=== PATIENT | female | born 1985 | race Caucasian/White ===

== ENCOUNTER 2016-07-13 14:53 | Emergency (ER) | payer OTHER ==
[2016-07-13 15:11] VITALS: BP 130/83; PULSE 91; RESP 18; TEMP 98.3
--- NOTE | 2016-07-13 16:08 | ED ---
ENT HPI - General Chief complaint: ENT Stated complaint: Sinus Infection/Abcess (oral) Time Seen by Provider: 07/13/16 16:07 Source: patient, RN notes reviewed Mode of arrival: ambulatory Limitations: no limitations - History of Present Illness Initial comments: Patient is a 31 year old female with chief complaint of sinus congestion for one week and 2 days of dental pain. Patient reports she has a history of dental abscess after sinus infections. She reports she has a broken upper left tooth that has swollen around the edge of the gums for 2 days. Patient denies fever or chills. Patient reports she does not have a dentist. She reports to taking decongestants. - Related Data Home Medications Medication Instructions Recorded Confirmed Norethindrone-E.estradiol-Iron 1 tab PO DAILY 07/13/16 07/13/16 [Junel Fe 24 Tablet] Previous Rx's Medication Instructions Recorded Amoxicillin/Potassium Clav 1 tab PO Q12HR #14 tab 07/13/16 [Augmentin 875-125 Tablet] methylPREDNISolone Dose Pack 4 mg PO DIRECTED #21 package 07/13/16 [Medrol Dose Pack] Allergies Allergy/AdvReac Type Severity Reaction Status Date / Time sulfamethoxazole Allergy Severe Anaphylaxis Verified 07/13/16 16:29 [From Bactrim] trimethoprim [From Bactrim] Allergy Severe Anaphylaxis Verified 07/13/16 16:29 venom-honey bee Allergy Severe Anaphylaxis Verified 07/13/16 16:29 [bee venom (honey bee)] Review of Systems ROS Statement: Those systems with pertinent positive or pertinent negative responses have been documented in the HPI. ROS Other: All systems not noted in ROS Statement are negative. Past Medical History Past Medical History: Asthma Additional Past Medical History / Comment(s): Irritable bowel syndrome History of Any Multi-Drug Resistant Organisms: MRSA Date of last positivie culture/infection: 2009 MDRO Source:: under left arm Past Surgical History: Adenoidectomy, Tonsillectomy Additional Past Surgical History / Comment(s): cysts removed from ovary, 3 teeth removed sugically, sinus surgery x2, laprascopic surgery Past Anesthesia/Blood Transfusion Reactions: No Reported Reaction Past Psychological History: Depression Smoking Status: Current every day smoker Past Alcohol Use History: None Reported Past Drug Use History: None Reported General Exam Limitations: no limitations General appearance: alert, in no apparent distress Head exam: Present: atraumatic, normocephalic, normal inspection Eye exam: Present: normal appearance, PERRL, EOMI. Absent: scleral icterus, conjunctival injection, periorbital swelling ENT exam: Present: normal exam, mucous membranes moist, TM's normal bilaterally , other (sinus congestion and tenderness. ). Absent: normal oropharynx (broken upper left tooth number 12. Patient evidence of swelling around the tooth.) Neck exam: Present: normal inspection. Absent: tenderness, meningismus, lymphadenopathy Respiratory exam: Present: normal lung sounds bilaterally. Absent: respiratory distress, wheezes, rales, rhonchi, stridor Cardiovascular Exam: Present: regular rate, normal rhythm, normal heart sounds. Absent: systolic murmur, diastolic murmur, rubs, gallop, clicks GI/Abdominal exam: Present: soft, normal bowel sounds. Absent: distended, tenderness, guarding, rebound, rigid Extremities exam: Present: normal inspection, full ROM, normal capillary refill. Absent: tenderness, pedal edema, joint swelling, calf tenderness Back exam: Present: full ROM Neurological exam: Present: alert, oriented X3, CN II-XII intact Psychiatric exam: Present: normal affect, normal mood Skin exam: Present: warm, dry, intact, normal color. Absent: rash Course Vital Signs 07/13/16 15:09 Temperature 98.3 F Pulse Rate 91 Respiratory 18 Rate Blood Pressure 130/83 O2 Sat by Pulse 98 Oximetry Medical Decision Making - Medical Decision Making Patient is 31 year old with 1 week of sinus congestion and 2 days of tooth pain and swelling. Patient will be placed on augmentin and instructed to follow up with PCP as directed. Patient advised to follow up with dentist. Return parameters discussed. Patient understands treatment plan and will comply. Disposition Clinical Impression: Sinusitis, Dental infection Disposition: HOME SELF-CARE Condition: Good Instructions: Sinusitis (ED), Dental Abscess (ED) Additional Instructions: Patient instructed to completely antibiotic prescription. Follow-up with primary care provider within the week if symptoms continue to persist. Return to the [facility] if any alarming signs or symptoms occur. Prescriptions: Amoxicillin/Potassium Clav [Augmentin 875-125 Tablet] 1 tab PO Q12HR #14 tab methylPREDNISolone Dose Pack [Medrol Dose Pack] 4 mg PO DIRECTED #21 package Referrals: Pradeep Tejada MD [Primary Care Provider] - 1-2 days Time of Disposition: 16:17
== END 2016-07-13 16:38 | disposition home or self-care (01) ==
LOC: EC 14:53
DX: K04.7 Periapical abscess without sinus (principal); J32.9 Chronic sinusitis, unspecified; F17.200 Nicotine dependence, unspecified, uncomplicated; Z86.14 Personal history of Methicillin resistant Staphylococcus aureus infection; Z88.2 Allergy status to sulfonamides; Z91.030 Bee allergy status
CPT/HCPCS: 99282

== ENCOUNTER 2017-08-03 19:18 | Emergency (ER) | payer OTHER ==
[2017-08-03 19:26] VITALS: BP 140/83; PULSE 96; RESP 18; TEMP 98.7
--- NOTE | 2017-08-03 19:47 | ED ---
General Adult HPI - General Chief complaint: ENT Stated complaint: sore throat/back pain Time Seen by Provider: 08/03/17 19:27 Source: patient, RN notes reviewed Mode of arrival: ambulatory Limitations: no limitations - History of Present Illness Initial comments: This is a 32-year-old female who presents to the emergency department with complaints of sore throat and back pain. Patient states that since Tuesday she has had a sore throat. She states that she has had fevers and chills. She states that her fever recently broke at approximately noon today. She states that she has white stuff on her tonsils. Patient states she has had a decreased appetite. Patient also complains of back pain from a fall yesterday. Patient states that she fell down approximately 4 steps yesterday, injuring the left side of her back. She states that she's been taking ibuprofen and Tylenol. She denies any saddle paresthesias or loss of bladder or bowel function. Denies any head injury or neck pain. Denies loss of consciousness, dizziness or headache. She denies abdominal pain but does report some nausea. Denies vomiting. - Related Data Home Medications Medication Instructions Recorded Confirmed Norethindrone-E.estradiol-Iron 1 tab PO DAILY 07/13/16 07/13/16 [Junel Fe 24 Tablet] Previous Rx's Medication Instructions Recorded Amoxicillin/Potassium Clav 1 tab PO Q12HR #14 tab 07/13/16 [Augmentin 875-125 Tablet] methylPREDNISolone Dose Pack 4 mg PO DIRECTED #21 package 07/13/16 [Medrol Dose Pack] Cephalexin [Keflex] 500 mg PO Q12HR #20 cap 08/03/17 Allergies Allergy/AdvReac Type Severity Reaction Status Date / Time sulfamethoxazole Allergy Severe Anaphylaxis Verified 08/03/17 19:26 [From Bactrim] trimethoprim [From Bactrim] Allergy Severe Anaphylaxis Verified 08/03/17 19:26 venom-honey bee Allergy Severe Anaphylaxis Verified 08/03/17 19:26 [bee venom (honey bee)] Review of Systems ROS Statement: Those systems with pertinent positive or pertinent negative responses have been documented in the HPI. ROS Other: All systems not noted in ROS Statement are negative. Past Medical History Past Medical History: Asthma Additional Past Medical History / Comment(s): Irritable bowel syndrome History of Any Multi-Drug Resistant Organisms: MRSA Date of last positivie culture/infection: 2009 MDRO Source:: under left arm Past Surgical History: Adenoidectomy, Tonsillectomy Additional Past Surgical History / Comment(s): cysts removed from ovary, 3 teeth removed sugically, sinus surgery x2, laprascopic surgery Past Anesthesia/Blood Transfusion Reactions: No Reported Reaction Past Psychological History: No Psychological Hx Reported Smoking Status: Current every day smoker Past Alcohol Use History: Rare Past Drug Use History: None Reported General Exam - General Exam Comments Initial Comments: General: Awake and alert, well-developed; in no apparent distress. HEENT: Head atraumatic, normocephalic. Pupils are equal, round and reactive to light. Extraocular movements intact. Oropharynx moist with erythema and bilateral tonsillar exudates. Neck: Supple. Normal ROM. Cardiovascular: Regular rate and rhythm. No murmurs, rubs or gallops. Chest symmetrical. Respiratory: Lungs clear to auscultation bilaterally. No wheezes, rales or rhonchi. Normal respiratory effort with no use of accessory muscles. Musculoskeletal: Ambulating normally. Normal range of motion of spine. Generalized tenderness on palpation of mid and low back. There is ecchymosis noted to left side lumbar region. Sensation is intact. Pedal pulses are 2+ equal and palpable bilaterally. Skin: [place], warm and dry without rashes or lesions. Neurological: Alert and oriented x3. CN II-XII grossly intact. Speech is fluent and answers are appropriate. No focal neuro deficits. Psychiatric: Normal mood and affect. No overt signs of depression or anxiety noted. Limitations: no limitations Course Vital Signs 08/03/17 19:22 Temperature 98.7 F Pulse Rate 96 Respiratory 18 Rate Blood Pressure 140/83 O2 Sat by Pulse 98 Oximetry Medical Decision Making - Medical Decision Making This is a 33-year-old female who presents to the emergency department with complaints of sore throat and back pain. Patient does have an erythematous oropharynx with bilateral tonsillar exudates. She will be treated empirically for strep throat. Patient also complains of mid to low back pain after sustaining a fall yesterday. There is bruising noted to the left lower back. X- rays of thoracic and lumbar spine revealed no acute abnormalities. Patient is in no acute distress and vital signs are stable. She will be discharged home. She will be given a prescription from amoxicillin. She is follow-up with her primary care provider in 1-2 days. Findings and plan were discussed with patient who is in agreement. She voices understanding. All questions answered. - Radiology Data Radiology results: report reviewed X-ray thoracic spine impression: No acute fracture or dislocation is seen in the thoracic spine. X-ray lumbar spine impression: No acute fracture or dislocation is seen in the lumbar spine. Disposition Clinical Impression: Contusion of lower back, Streptococcal sore throat Disposition: HOME SELF-CARE Condition: Good Instructions: Strep Throat (ED), Contusion in Adults (ED), Back Pain (ED) Additional Instructions: Please take medications as prescribed. Please follow up with primary care provider within 1-2 days. Return to emergency department if symptoms should worsen or any concerns arise. Prescriptions: Cephalexin [Keflex] 500 mg PO Q12HR #20 cap Referrals: Pradeep Tejada MD [Primary Care Provider] - 1-2 days Time of Disposition: 20:01
--- NOTE | 2017-08-03 19:53 | XR ---
EXAMINATION TYPE: XR thoracic spine 2V DATE OF EXAM: 08/03/2017 CLINICAL HISTORY: pain TECHNIQUE: Frontal, lateral, and swimmer's view of thoracic spine are obtained. COMPARISON: None. FINDINGS: Thoracic spine show satisfactory alignment without evidence of acute fracture or dislocatio n. Vertebral body heights are preserved. Disc spaces are well preserved. Visualized ribs are unrem arkable. IMPRESSION: No acute fracture or dislocation is seen in the thoracic spine. ICD 10 NO FRACTURE, INIT IAL EVALUATION
--- NOTE | 2017-08-03 19:53 | XR ---
EXAMINATION TYPE: XR lumbar spine 2 or 3V DATE OF EXAM: 08/03/2017 CLINICAL HISTORY: pain TECHNIQUE: Three views of the lumbar spine are submitted. COMPARISON: None. FINDINGS: There are 5 lumbar type vertebral bodies identified. The lumbar spine shows satisfactory alignment w ithout evidence of acute fracture or dislocation. Vertebral body heights are within normal limits. Disc spaces are within normal limits. The overlying soft tissue appears unremarkable. IMPRESSION: No acute fracture or dislocation is seen in the lumbar spine. ICD 10 NO FRACTURE, INITIAL EVALUATION
== END 2017-08-03 20:09 | disposition home or self-care (01) ==
LOC: EC 19:18
DX: S30.0XXA Contusion of lower back and pelvis, initial encounter (principal); J02.0 Streptococcal pharyngitis; F17.200 Nicotine dependence, unspecified, uncomplicated; Z86.14 Personal history of Methicillin resistant Staphylococcus aureus infection; Z79.3 Long term (current) use of hormonal contraceptives; Z88.2 Allergy status to sulfonamides; Z91.030 Bee allergy status; W10.9XXA Fall (on) (from) unspecified stairs and steps, initial encounter
CPT/HCPCS: 72070; 72100; 99283

== ENCOUNTER 2019-08-18 12:22 | Emergency (ER) | payer BC ==
[2019-08-18 12:29] VITALS: BP 108/73; PULSE 77; RESP 20; TEMP 98
--- NOTE | 2019-08-18 12:51 | ED ---
Lower Extremity Injury HPI - General Chief Complaint: Extremity Injury, Lower Stated Complaint: Foot Injury Time Seen by Provider: 08/18/19 12:32 Source: patient Mode of arrival: ambulatory Limitations: no limitations - History of Present Illness Initial Comments: Patient is a 34-year-old female presenting to emergency Department with complaints of pain in her right foot since yesterday. Patient states she was swinging her leg around when her fifth digit caught the side of her bookshelf. She feels like it went to the side. Patient states she had some mild swelling and bruising yesterday but woke up this morning with increase in swelling and pain. She denies any previous injuries or surgeries to this foot. Patient states she has pain with walking. She has no other complaints at this time. Upon arrival to the ER, vitals are stable. - Related Data Home Medications Medication Instructions Recorded Confirmed Norethindrone-E.estradiol-Iron 1 tab PO DAILY 07/13/16 07/13/16 [Junel Fe 24 Tablet] Previous Rx's Medication Instructions Recorded Amoxicillin/Potassium Clav 1 tab PO Q12HR #14 tab 07/13/16 [Augmentin 875-125 Tablet] methylPREDNISolone Dose Pack 4 mg PO DIRECTED #21 package 07/13/16 [Medrol Dose Pack] Cephalexin [Keflex] 500 mg PO Q12HR #20 cap 08/03/17 Allergies Allergy/AdvReac Type Severity Reaction Status Date / Time sulfamethoxazole Allergy Severe Anaphylaxis Verified 08/18/19 12:29 [From Bactrim] trimethoprim [From Bactrim] Allergy Severe Anaphylaxis Verified 08/18/19 12:29 venom-honey bee Allergy Severe Anaphylaxis Verified 08/18/19 12:29 [bee venom (honey bee)] Review of Systems ROS Statement: Those systems with pertinent positive or pertinent negative responses have been documented in the HPI. ROS Other: All systems not noted in ROS Statement are negative. Past Medical History Past Medical History: Asthma Additional Past Medical History / Comment(s): Irritable bowel syndrome History of Any Multi-Drug Resistant Organisms: MRSA Date of last positivie culture/infection: 2009 MDRO Source:: under left arm Past Surgical History: Adenoidectomy, Tonsillectomy Additional Past Surgical History / Comment(s): cysts removed from ovary, 3 teeth removed sugically, sinus surgery x2, laprascopic surgery Past Anesthesia/Blood Transfusion Reactions: No Reported Reaction Past Psychological History: No Psychological Hx Reported Smoking Status: Current every day smoker Past Alcohol Use History: Rare Past Drug Use History: None Reported General Exam - General Exam Comments Initial Comments: GENERAL: Well-appearing, well-nourished and in no acute distress. HEAD: Atraumatic, normocephalic. EYES: Pupils equal round and reactive to light, extraocular movements intact, sclera anicteric, conjunctiva are normal. ENT: Moist mucous membranes. NECK: Normal range of motion, supple without lymphadenopathy or JVD. LUNGS: Breath sounds clear to auscultation bilaterally and equal. No wheezes rales or rhonchi. HEART: Regular rate and rhythm without murmurs, rubs or gallops. ABDOMEN: Soft, nontender, normoactive bowel sounds. No guarding, no rebound. No masses appreciated. EXTREMITIES: Patient has pain with palpation of the right fourth and fifth digits. Pain extends up into the fourth and fifth metatarsals. Patient does have significant bruising to the area as well as mild to moderate swelling. She is neurovascular intact. No pain of the right ankle. Patient does have full range of motion of her toes however painful with extension. No clubbing or cyanosis. SKIN: Warm, Dry, normal turgor, no rashes or lesions noted. Limitations: no limitations Course Vital Signs 08/18/19 12:27 Temperature 98.0 F Pulse Rate 77 Respiratory 20 Rate Blood Pressure 108/73 O2 Sat by Pulse 98 Oximetry Medical Decision Making - Medical Decision Making Patient is a 34-year-old female presenting with right foot pain after accident like taking a bookcase. Patient has significant bruising and swelling along the fourth and fifth digits and metatarsals. X-rays reveal no acute fractures dislocations of the right foot. I discussed these findings with the patient. This is most likely a contusion to the bones. Patient will continue with ice as well as ibuprofen for discomfort. She will follow-up with PCP in one to 2 weeks if symptoms persist. She is in agreement with this plan of care. She is stable for discharge. Disposition Clinical Impression: Contusion of right foot including toes Disposition: HOME SELF-CARE Condition: Stable Instructions (If sedation given, give patient instructions): Foot Contusion (ED) Additional Instructions: Please return to the Emergency Department if symptoms worsen or any other concerns. May use ice as well as ibuprofen to the area. Follow-up with PCP or orthopedics in 1-2 weeks if symptoms persist. Is patient prescribed a controlled substance at d/c from ED?: No Referrals: Pradeep Tejada MD [Primary Care Provider] - 1-2 days Alex Stephens MD [STAFF PHYSICIAN] - 1-2 days
--- NOTE | 2019-08-18 13:01 | XR ---
EXAMINATION TYPE: XR foot complete RT DATE OF EXAM: 08/18/2019 CLINICAL HISTORY: Pain after injury last night. TECHNIQUE: Frontal, lateral, and oblique images of the right foot are obtained. COMPARISON: None FINDINGS: There is no acute fracture/dislocation evident in the right foot. The joint spaces in the right foot appear within normal limits. Small inferior calcaneal spur. The overlying soft tissue andrey ears unremarkable. IMPRESSION: There is no acute fracture or dislocation in the right foot.
== END 2019-08-18 13:26 | disposition home or self-care (01) ==
LOC: EC 12:22
DX: S90.121A Contusion of right lesser toe(s) without damage to nail, initial encounter (principal); S90.31XA Contusion of right foot, initial encounter; F17.200 Nicotine dependence, unspecified, uncomplicated; Z88.1 Allergy status to other antibiotic agents; Z88.2 Allergy status to sulfonamides; Z91.030 Bee allergy status; W22.8XXA Striking against or struck by other objects, initial encounter; Y92.009 Unspecified place in unspecified non-institutional (private) residence as the place of occurrence of the external cause
CPT/HCPCS: 99283

== ENCOUNTER → 2019-11-16 | Outpatient (CLI) | payer OTHER ==
--- NOTE | 2019-11-16 12:28 | US ---
EXAMINATION TYPE: US OB >= 14 wk fetus DATE OF EXAM: 11/16/2019 COMPARISON: None CLINICAL HISTORY: Z36 confirm datesConfirm dates, 5, para 1, miscarriage 3 TECHNIQUE: Transabdominal (TA) GESTATIONAL AGE / DATING Physician Established: (14 weeks/2 days) EDC: 05/14/2020 Dates by LMP: Unknown Dates by First Scan: This is 1st scan Dates by Current Scan: (15 weeks/2 days) EDC: 05/07/2020 SURVEY IUP: Single PLACENTA: Posterior 2.2cm hypoechoic area seen PREVIA: No Previa CYNTHIA: 10.7 cm Normal CERVICAL LENGTH (transabdominal: norm > 3.0cm): 4.0 cm BIOMETRY PRESENTATION: Breech LIE: Longitudinal BPD: 2.8 cm 15 weeks / 0 days HC: 10.4 cm 14 weeks / 6 days AC: 9.7 cm 15 weeks / 6 days FL: 1.6 cm 14 weeks / 4 days ESTIMATED WEIGHT IN GRAMS: 117 grams ESTIMATED WEIGHT IN LBS/OZ: 0 lbs. 4 oz. WEIGHT PERCENTAGE BASED ON ESTABLISHED DATES: 92% HC/AC: 1.07 Normal FL/AC: 16.05 HEART RATE: 154 bpm RHYTHM: Normal MATERNAL WALL MEASUREMENT: 3.8 cm from skin to anterior uterine wall (if exam limited due to body hab itus). Viable single IUP measuring 15 weeks 2 days with a heart rate of 154bpm and an estimated delivery juan e of 05/07/2020. No suspicious cervical thinning. Single live intrauterine gestation. Breech presentation currently. N o placenta previa. Amniotic fluid index calculated within normal limits. biometry measurements congruent and are thought within normal limits. There is 2.2 cm oval hypoechoic area near the periphe ry of away from the cord. Suspect small subchorionic preplacental hemorrhage. Consider short-term ult rasound follow-up study. IMPRESSION: As above.
== END | disposition home or self-care (01) ==
LOC: RADUSWWP 10:26
PROVIDERS: ATTEND Obstetrics & Gynecology
DX: O32.1XX0 Maternal care for breech presentation, not applicable or unspecified (principal); Z3A.15 15 weeks gestation of pregnancy; Z88.1 Allergy status to other antibiotic agents
CPT/HCPCS: 76805

== ENCOUNTER 2020-03-26 15:09 | Outpatient (CLI) | payer OTHER ==
--- NOTE | 2020-03-26 16:17 | US ---
EXAMINATION TYPE: US OB >= 14 wk fetus DATE OF EXAM: 03/26/2020 COMPARISON: US 11/16/2019 CLINICAL HISTORY: decels in office, complete OB US TECHNIQUE: Transabdominal (TA) GESTATIONAL AGE / DATING Physician Established: (34 weeks/0 days) EDC: 05/07/2020 Dates by First Scan: 34 weeks/0 days) EDC: 05/07/2020 Dates by Current Scan: (32 weeks/5 days) EDC: 05/16/2020 SURVEY IUP: Single PLACENTA: Posterior PREVIA: No Previa CYNTHIA: 16.2 cm Normal CERVICAL LENGTH (transabdominal: norm > 3.0cm): 3.5 cm BIOMETRY PRESENTATION: Vertex LIE: Longitudinal BPD: 8.2 cm 33 weeks / 1 days HC: 29.5 cm 32 weeks / 5 days AC: 27.7 cm 31 weeks / 6 days FL: 6.3 cm 32 weeks / 5 days ESTIMATED WEIGHT IN GRAMS: 1924 grams ESTIMATED WEIGHT IN LBS/OZ: 4 lbs. 4 oz. WEIGHT PERCENTAGE BASED ON ESTABLISHED DATES: 7% HC/AC: 1.07 Normal FL/AC: 23% Normal HEART RATE: 156 bpm RHYTHM: Normal IMPRESSION: Single live intrauterine gestation, with heart rate of 156 bpm and estimated delivery date of 07/17/2019.
== END 2020-03-26 16:22 | disposition home or self-care (01) ==
LOC: FBPOP 15:09
PROVIDERS: ATTEND Obstetrics & Gynecology
DX: O42.913 Preterm premature rupture of membranes, unspecified as to length of time between rupture and onset of labor, third trimester (principal); Z3A.34 34 weeks gestation of pregnancy
CPT/HCPCS: 59025; 76805; 84112

== ENCOUNTER 2020-05-17 04:10 | Inpatient (IN) | payer OTHER ==
[2020-05-17] MEDS ORDERED: SIMETHICONE 80 MG CHEWABLE PO PRN (04:45)
[2020-05-17] MEDS ORDERED: diphenhydrAMINE 50 MG CAP PO PRN (04:45)
[2020-05-17] MEDS ORDERED: diphenhydrAMINE 25 MG CAP PO PRN (04:45)
[2020-05-17] MEDS ORDERED: BENZOCAINE/MENTHOL SPRAY 1 GM/SPRAY AEROSOL TOPICAL PRN (04:45)
[2020-05-17] MEDS ORDERED: HYDROCORTISONE 2.5% RECTAL CREAM 30 GM TUBE RECTAL PRN (04:45)
[2020-05-17] MEDS ORDERED: LANOLIN CREAM 5 GM TUBE TOPICAL PRN (04:45)
[2020-05-17] MEDS ORDERED: ZOLPIDEM 5 MG TAB PO PRN (04:45)
[2020-05-17] MEDS ORDERED: diphenhydrAMINE 50 MG/ML 1 ML VIAL IVP PRN ×2 (04:45)
[2020-05-17] MEDS ORDERED: OXYTOCIN 20 UNITS/1000 ML NS 1,000 ML IV SCH (04:45)
[2020-05-17] MEDS: IBUPROFEN 600 MG TAB PO PRN ×3 (05:16→19:23)
--- NOTE | 2020-05-17 05:36 | P.HPOB ---
History of Present Illness H&P Date: 05/17/20 Chief Complaint: Delivery at home This patient is a 35-year-old 5 para 2 female estimated date of confinement 05/15/2020 estimated gestational age 40-2/7 weeks who resented by EMS after delivering her baby at home in the toilet. Patient states that she awoke at approximately 2:30 or so with complaints of concerns of contractions however she didn't know if maybe it was just gas. Patient also began having some bleeding and pressure subsequently went to the bathroom where she subsequently delivered her baby in the toilet. Estimated delivery of the baby was 0335 hrs. Subsequently the placenta delivered spontaneously at approximately 0350 hrs. Patient was brought to labor and delivery by EMS with her baby. care is per Dr. Bray and she was in the office just recently and apparently was 5 cm dilated but declined induction. She also did have a positive group B strep culture. Patient is an elderly multipara and was offered evaluation by maternal medicine however declined. She did have a normal Materni T21. Review of Systems Genitourinary: Reports as per HPI Past Medical History Past Medical History: Asthma Additional Past Medical History / Comment(s): Irritable bowel syndrome History of Any Multi-Drug Resistant Organisms: MRSA Date of last positivie culture/infection: 2009 MDRO Source:: under left arm Past Surgical History: Adenoidectomy, Tonsillectomy Additional Past Surgical History / Comment(s): cysts removed from ovary, 3 teeth removed sugically, sinus surgery x2, laprascopic surgery Past Anesthesia/Blood Transfusion Reactions: No Reported Reaction Past Psychological History: Anxiety Smoking Status: Current every day smoker Past Alcohol Use History: None Reported Past Drug Use History: None Reported - Past Family History Mother Family Medical History: Thyroid Disorder Medications and Allergies Allergies Allergy/AdvReac Type Severity Reaction Status Date / Time sulfamethoxazole Allergy Severe Anaphylaxis Verified 05/17/20 04:43 [From Bactrim] trimethoprim [From Bactrim] Allergy Severe Anaphylaxis Verified 05/17/20 04:43 venom-honey bee Allergy Severe Anaphylaxis Verified 05/17/20 04:43 [bee venom (honey bee)] Exam Vital Signs Temp Pulse Resp BP 05/17/20 04:47 96.7 F L 76 16 119/70 Intake and Output 05/16/20 05/16/20 05/17/20 14:59 22:59 06:59 Other: Weight 97.069 kg - OBG Physical Exam Vulva: Patient has a superficial right upper labial laceration that does not require repair Vulva: both: normal Cervix: no lesion, no discharge Uterus: enlarged Results blood work shows she is A positive, rubella immune, RPR nonreactive, hepatitis B negative, HIV is nonreactive, Glucola was normal, Materni T21 was normal 46 XX, group B strep was positive, ultrasounds have been normal. Assessment and Plan Assessment: This is a 35-year-old 5 para 2 female status post spontaneous vaginal delivery at home. Patient also delivered the placenta at home as well. I did do an exam and patient is not bleeding and has a superficial laceration of the right labia. No suture is required. She understands and she had a positive group B strep culture most likely the baby will need to be watched for at least 48 hours and could require IV antibiotics. At this point we will just continue routine care. (1) Postmaturity , 40-42 weeks gestation Current Visit: Yes Status: Acute Code(s): O48.0 - POST-TERM SN OMED Code(s): 33422954931126 (2) Precipitous delivery, delivered (current hospitalization) Current Visit: Yes Status: Acute Code(s): O62.3 - PRECIPITATE LABOR SNOMED Code(s): 835532231
[2020-05-17] MEDS ORDERED: ONDANSETRON 4 MG/2 ML VIAL IVP STA (06:10)
[2020-05-17] MEDS: ACETAMINOPHEN TAB 325 MG TAB PO PRN ×3 (08:12→22:22)
[2020-05-17] MEDS: SENNOSIDES-DOCUSATE SODIUM 1 EACH TAB PO SCH ×2 (14:36→19:23)
[2020-05-18 00:48] VITALS: PULSE 64
[2020-05-18] MEDS: IBUPROFEN 600 MG TAB PO PRN ×2 (04:03→10:29)
--- NOTE | 2020-05-18 06:19 | P.PNOBGVD ---
Subjective - Subjective Patient reports: Reports appetite normal, Reports voiding normally, Reports pain well controlled, Reports ambulating normally : doing well Objective - Latest Vital Signs Latest vital signs: Vital Signs Temp Pulse Resp BP Pulse Ox 05/18/20 00:00 97.9 F 64 18 117/87 96 05/17/20 20:00 97.9 F 57 L 18 115/73 100 05/17/20 16:00 97.9 F 120 H 44 H 106/53 05/17/20 12:00 98.2 F 62 16 107/62 05/17/20 09:30 98.0 F 84 16 112/74 05/17/20 06:18 97.9 F 52 L 16 110/70 Intake and Output 05/17/20 05/17/20 05/18/20 14:59 22:59 06:59 Other: # Voids 1 1 1 - Exam Lungs: bilateral: normal Chest: Normal S1, Normal S2 Extremities: Present: normal Abdomen: Present: normal appearance, soft Uterus: Present: normal, firm Assessment and Plan Assessment: Post day #1. Patient is resting without complaints. Patient did want to go home yesterday however I encouraged her to stay until today because of her very recent delivery. Patient does desire to go home today allow her baby will not be able to go home until tomorrow. Vital signs are stable she is afebrile. Uterus is firm nontender she's having normal lochia. I do feel she is stable for discharge home follow up with Dr. Bray 6 weeks. (1) Postmaturity , 40-42 weeks gestation Current Visit: Yes Status: Acute Code(s): O48.0 - POST-TERM SNOMED Code(s): 16563735647274 (2) Precipitous delivery, delivered (current hospitalization) Current Visit: Yes Status: Acute Code(s): O62.3 - PRECIPITATE LABOR SNOMED Code(s): 526022081
--- NOTE | 2020-05-18 06:23 | P.DS ---
Providers Date of admission: 05/17/20 04:10 Expected date of discharge: 05/18/20 Attending physician: Gato Bray Primary care physician: Stated None - Discharge Diagnosis(es) (1) Postmaturity , 40-42 weeks gestation Current Visit: Yes Status: Acute (2) Precipitous delivery, delivered (current hospitalization) Current Visit: Yes Status: Acute Hospital Course: Please see dictated H&P for intimate details of this patient's admission. Brief summary this is a 35-year-old female admitted via EMS status post vaginal delivery of viable female infant in the placenta at home. patient had no problems had normal lochia. Patient wishes to go home actually on post day #0 by encouraged her to stay another day. Patient's felt be stable for discharge home follow with Dr. Bray in 6 weeks. Patient Condition at Discharge: Good Plan - Discharge Summary New Discharge Prescriptions: New Ibuprofen [Motrin] 600 mg PO Q6HR PRN #30 tab PRN Reason: Mild Pain Or Fever >= 100.5 Discharge Medication List Ibuprofen [Motrin] 600 mg PO Q6HR PRN #30 tab 05/18/20 [Rx] Follow up Appointment(s)/Referral(s): Gato Bray DO [Doctor of Osteopathic Medicine] - 6 Weeks Patient Instructions/Handouts: Vaginal Delivery (DC) Activity/Diet/Wound Care/Special Instructions: No intercourse or anything per vagina for 6 weeks. Please call if any fever, chills, excessive vaginal bleeding, and/or abdominal pain Discharge Disposition: HOME SELF-CARE
[2020-05-18 06:28] LABS: Basophils % (A) 0 %; Eosinophils # (A) 0.2 k/uL (0-0.7); Eosinophils % (A) 2 %; HCT 32.2 % (34.0-46.0); HGB 10.8 gm/dL (11.4-16.0); Lymphocytes # (A) 2.5 k/uL (1.0-4.8); Lymphocytes % (A) 29 %; MCH 30.9 pg (25.0-35.0); MCHC 33.7 g/dL (31.0-37.0); MCV 91.8 fL (80.0-100.0); Mean Platelet Volume 8.1; Monocytes # (A) 0.4 k/uL (0-1.0); Monocytes % (A) 5 %; Neutrophils # (A) 5.4 k/uL (1.3-7.7); Neutrophils % (A) 63 %; Platelet Count 209 k/uL (150-450); RBC 3.51 m/uL (3.80-5.40); RDW 13.3 % (11.5-15.5); WBC 8.6 k/uL (3.8-10.6)
[2020-05-18] MEDS: ACETAMINOPHEN TAB 325 MG TAB PO PRN (07:55)
[2020-05-18 08:09] VITALS: BP 111/70; RESP 16; TEMP 98.2
[2020-05-18] MEDS: SENNOSIDES-DOCUSATE SODIUM 1 EACH TAB PO SCH (09:12)
[2020-05-18 11:12] LABS: Urine Alcohol Negative (Negative); Urine Barbiturate Negative (Negative); Urine Cocaine Negative (Negative); Urine Methadone Negative (Negative); Urine Opiates Negative (Negative); Urine Phencyclidine Negative (Negative)
== END 2020-05-18 14:46 | disposition home or self-care (01) | DRG 776 ==
LOC: 4FBP 04:10
PROVIDERS: ADMIT Obstetrics & Gynecology; ATTEND Obstetrics & Gynecology
DX: O70.0 First degree perineal laceration during delivery (principal); J45.909 Unspecified asthma, uncomplicated; O99.824 Streptococcus B carrier state complicating childbirth; O99.52 Diseases of the respiratory system complicating childbirth; O99.334 Smoking (tobacco) complicating childbirth; F17.200 Nicotine dependence, unspecified, uncomplicated; K58.9 Irritable bowel syndrome, unspecified; Z86.14 Personal history of Methicillin resistant Staphylococcus aureus infection; Z90.89 Acquired absence of other organs; Z87.42 Personal history of other diseases of the female genital tract; Z86.59 Personal history of other mental and behavioral disorders; Z98.890 Other specified postprocedural states; Z98.818 Other dental procedure status; Z88.2 Allergy status to sulfonamides; Z91.030 Bee allergy status; Z83.49 Family history of other endocrine, nutritional and metabolic diseases
CPT/HCPCS: 80306; 85025; 86850; 86900; 86901

== ENCOUNTER 2020-08-15 06:13 | Day surgery (SDC) | payer OTHER ==
[2020-08-11 09:30] VITALS: BMI 29.3
--- NOTE | 2020-08-14 20:13 | P.HPOB ---
History of Present Illness H&P Date: 08/14/20 Chief Complaint: Family planning Constanza is a 35 year old female who is completed her family planning and desires permanent sterilization. She is 5. 2. Multiple discussions were held with various -control options discussed and she declines all. She understands that this is designed to be a permanent procedure and not designed to be reversed. She understands that there is a small failure rate as well. All questions were answered for her prior to proceeding to the operative room. Past Medical History Past Medical History: Asthma, GERD/Reflux, Musculoskeletal Disorder Additional Past Medical History / Comment(s): Irritable Bowel Syndrome. Varicose vein. Scoliosis. Hx broken tail bone. History of Any Multi-Drug Resistant Organisms: MRSA Date of last positivie culture/infection: 2009 MDRO Source:: under left arm Past Surgical History: Adenoidectomy, Tonsillectomy Additional Past Surgical History / Comment(s): Cysts removed from ovary, 3 teeth removed surgically, sinus surgery X2, laproscopic surgery. Past Anesthesia/Blood Transfusion Reactions: No Reported Reaction Past Psychological History: Anxiety Smoking Status: Current every day smoker Past Alcohol Use History: None Reported Additional Past Alcohol Use History / Comment(s): Has been smoking for 6 yrs, 1/2 PPD. Past Drug Use History: None Reported - Past Family History Mother Family Medical History: Thyroid Disorder Medications and Allergies Home Medications Medication Instructions Recorded Confirmed Type Ibuprofen [Motrin] 600 mg PO Q6HR PRN #30 tab 05/18/20 08/11/20 Rx Allergies Allergy/AdvReac Type Severity Reaction Status Date / Time sulfamethoxazole Allergy Severe Anaphylaxis Verified 08/11/20 09:09 [From Bactrim] trimethoprim [From Bactrim] Allergy Severe Anaphylaxis Verified 08/11/20 09:09 venom-honey bee Allergy Severe Anaphylaxis Verified 08/11/20 09:09 [bee venom (honey bee)] Exam Osteopathic Statement: *. No significant issues noted on an osteopathic structural exam other than those noted in the History and Physical/Consult. - OBG Physical Exam Breast: both: normal (no masses) Abdomen: bowel sounds normal, no diffuse tenderness, no bruit present, no guarding noted, no hepatomegaly, no splenomegaly, no mass Vulva: both: normal Vagina: normal moisture, no discharge Cervix: no lesion, no discharge Uterus: normal size, normal contour Adnexa: both: normal Anus/Rectum: normal perianal skin, no rectal mass, no hemorrhoids, heme negative
[~2020-08-15 06:13] MED LIST: DEXAMETHASONE SOD PHOSPHATE 4 MG/ML 1 ML VIAL IV ONE; LACTATED RINGERS 1,000 ML IV SCH; MIDAZOLAM 2 MG/2 ML VIAL IV PRN; ONDANSETRON 4 MG/2 ML VIAL IVP ONE; Pre Op ABX Message 1 EACH MISC MISCELLANE ONE; SCOPOLAMINE 1.5MG/72HR PATCH TRANSDERM ONE
[2020-08-15] MEDS ORDERED: LIDOCAINE 1% (10MG/ML) FOR IV START INTRADERMA ONE (07:06)
[2020-08-15] MEDS ORDERED: BUPIVACAINE (PF) 0.25% 30 ML VIAL SQ ONE ×2 (07:33→08:01)
[2020-08-15] MEDS ORDERED: PROPOFOL 10 MG/ML 20 ML VIAL IV ONE (07:34)
[2020-08-15] MEDS ORDERED: LIDOCAINE 1% INJ 10MG/ML (20 ML MDV) ONE (07:34)
[2020-08-15] MEDS ORDERED: ROCURONIUM 10 MG/ML (5 ML VIAL) IV ONE (07:34)
[2020-08-15] MEDS ORDERED: MIDAZOLAM 2 MG/2 ML VIAL ONE (07:34)
[2020-08-15] MEDS ORDERED: NEOSTIGMINE 1 MG/ML 10 ML VIAL ONE (07:34)
[2020-08-15] MEDS ORDERED: HYDROmorphone (PF) 1 MG/ML ONE (07:34)
[2020-08-15] MEDS ORDERED: SUCCINYLCHOLINE CHLORIDE 100 MG/5 ML SYR IV ONE (07:34)
[2020-08-15] MEDS ORDERED: fentaNYL (PF) 50 MCG/ML 2 ML AMP ONE (07:34)
[2020-08-15] MEDS ORDERED: KETOROLAC 15 MG/ML 1 ML VIAL ONE (07:34)
[2020-08-15] MEDS ORDERED: GLYCOPYRROLATE 0.2 MG/ML 2 ML VIAL ONE (07:34)
--- NOTE | 2020-08-15 08:16 | P.OP ---
Date of Procedure: 08/15/20 Preoperative Diagnosis: Family planning Postoperative Diagnosis: Same Procedure(s) Performed: Laparoscopic tubal occlusion with Filshie clips Anesthesia: ISHA Surgeon: Gato Bray Estimated Blood Loss (ml): 3 IV fluids (ml): 300 Urine output (ml): 30 Pathology: none sent Condition: stable Disposition: same day Operative Findings: Normal female pelvic anatomy Description of Procedure: Constanza was taken to the operating suite where general anesthetic was found be adequate. She was prepped and draped in the normal sterile fashion and placed in dorsal lithotomy position. Initially a speculum was inserted in the vagina and the anterior lip of the cervix was identified and grasped with single tooth tenaculum. Cervix was then sounded to 8 cm and a uterine manipulator was inserted without difficulty. Other incidents were then removed and red rubber catheter was used to drain the bladder urine. Gloves were changed this point attention was turned to the abdominal portion procedure per 2 mL of quarter percent Marcaine was injected periumbilically. Through this injected anesthetic a 5 mm skin incision was made and through this incision, under direct visualization with an optical trocar and sleeve, the camera was inserted. Once peritoneal placement was assured gas was allowed to fully insufflate the abdomen and patient was placed in steep Trendelenburg position. A second 8 mm skin inci ramón was then made 3 cm above the pubic symphysis in the midline and an 8 mm trocar and sleeve were inserted through this incision. Once this was completed again under direct visualization, observations pelvis were noted. First the right fallopian tube than the left fallopian tube had a Filshie clip applied 2 cm from uterine cornu. With no bleeding noted from the mesosalpinx incidents removed and gas was allowed to expel from the abdomen. 5 deep breaths were provided during this process. 4-0 Vicryl was then used to close incision subcuticularly and another 6-7 mL of quarter percent Marcaine was injected around these incisions. Incidents were then removed from the vagina. Sponge, lap, needle counts were all correct 2 patient tolerated surgery very well and was taken to the recovery room in stable and satisfactory condition. Plan - Discharge Summary Discharge Rx Participant: Yes New Discharge Prescriptions: New Ibuprofen [Motrin] 600 mg PO Q6HR PRN #30 tab PRN Reason: Pain HYDROcodone/APAP 5-325MG [[place] 5-325] 1 tab PO Q4HR PRN #30 tab PRN Reason: Pain No Action Ibuprofen [Motrin] 600 mg PO Q6HR PRN #30 tab PRN Reason: Mild Pain Or Fever >= 100.5 Discharge Medication List Ibuprofen [Motrin] 600 mg PO Q6HR PRN #30 tab 05/18/20 [Rx] HYDROcodone/APAP 5-325MG [[place] 5-325] 1 tab PO Q4HR PRN #30 tab 08/15/20 [Rx] Ibuprofen [Motrin] 600 mg PO Q6HR PRN #30 tab 08/15/20 [Rx] Follow up Appointment(s)/Referral(s): Gato Bray DO [Doctor of Osteopathic Medicine] - 2 Weeks Activity/Diet/Wound Care/Special Instructions: No heavy lifting, limit stairs and driving, and pelvic rest. If any high temperatures, heavy bleeding, or severe pain call my office Discharge Disposition: HOME SELF-CARE
[2020-08-15 08:23] VITALS: TEMP 97.3
[2020-08-15] MEDS ORDERED: ONDANSETRON 4 MG/2 ML VIAL IVP ONE (08:25)
[2020-08-15] MEDS: HYDROmorphone 0.5 MG/0.5 ML SYRINGE IVP PRN ×3 (08:30→09:48)
[2020-08-15 10:16] VITALS: RESP 18
[2020-08-15] MEDS ORDERED: HYDROcodone/APAP 5-325MG 1 EACH TAB ONE (10:27)
[2020-08-15] MEDS ORDERED: HYDROcodone/APAP 5-325MG 1 EACH TAB PO ONE (10:53)
[2020-08-15 11:09] VITALS: BP 115/77; PULSE 48
== END 2020-08-15 11:43 | disposition home or self-care (01) ==
LOC: OR 06:13
PROVIDERS: ATTEND Obstetrics & Gynecology
DX: Z30.2 Encounter for sterilization (principal); J45.909 Unspecified asthma, uncomplicated; K21.9 Gastro-esophageal reflux disease without esophagitis; K58.9 Irritable bowel syndrome, unspecified; I83.90 Asymptomatic varicose veins of unspecified lower extremity; F41.9 Anxiety disorder, unspecified; F17.210 Nicotine dependence, cigarettes, uncomplicated; Z86.14 Personal history of Methicillin resistant Staphylococcus aureus infection; Z83.49 Family history of other endocrine, nutritional and metabolic diseases; Z88.2 Allergy status to sulfonamides; Z91.030 Bee allergy status
CPT/HCPCS: 81025; 58671; J2250; J1100; J2710; J2405; J2001; J3010; J1170 ×2; J1885; J0330; J2704

== ENCOUNTER 2021-12-01 15:26 | Emergency (ER) | payer OTHER ==
[2021-12-01 15:54] VITALS: TEMP 98.3
[2021-12-01] MEDS ORDERED: MORPHINE SULFATE 4 MG/ML SYRINGE IM STA (16:05)
--- NOTE | 2021-12-01 16:47 | XR ---
EXAMINATION TYPE: XR hand complete RT DATE OF EXAM: 12/01/2021 COMPARISON: NONE HISTORY: Pain and swelling TECHNIQUE: 3 views FINDINGS: There is an acute oblique fracture distal shaft of the fifth metacarpal. The joint spaces a re normal. Fingers appear intact. Carpal bones are intact IMPRESSION: Acute boxer's fracture of the distal fifth metacarpal.
[2021-12-01] MEDS ORDERED: LIDOCAINE 1% INJ 10MG/ML (5 ML VIAL-PF) SQ ONE (17:53)
[2021-12-01] MEDS ORDERED: MUPIROCIN 2% OINT 22 GM TUBE TOPICAL STA (17:58)
[2021-12-01] MEDS ORDERED: BUPIVACAINE (PF) 0.5% 30 ML VIAL SQ STA (17:58)
[2021-12-01] MEDS ORDERED: HYDROmorphone 0.5 MG/0.5 ML SYRINGE IM STA (18:16)
--- NOTE | 2021-12-01 19:06 | ED ---
Wound/Laceration HPI - General Chief Complaint: Wound/Laceration Stated Complaint: R hand lac Time Seen by Provider: 12/01/21 15:57 Source: patient Mode of arrival: ambulatory Limitations: no limitations - History of Present Illness Initial Comments: Patient is a 36-year-old female who presents to the emergency department for evaluation of right hand injury. Patient states she almost fell down her stairs in her home today and during the process she hit her hand on the banister of the stairs. Patient endorses severe pain over the ulnar aspect of the right hand. She denies other injury. Denies numbness and tingling. Last tetanus unknown. - Related Data Previous Rx's Medication Instructions Recorded Ibuprofen [Motrin] 600 mg PO Q6HR PRN #30 tab 05/18/20 HYDROcodone/APAP 5-325MG [[place] 1 tab PO Q4HR PRN #30 tab 08/15/20 5-325] Ibuprofen [Motrin] 600 mg PO Q6HR PRN #30 tab 08/15/20 Cephalexin [Keflex] 500 mg PO Q6HR #40 cap 12/01/21 HYDROcodone/APAP 10-325MG [[place] 1 tab PO Q4HR PRN 3 Days #18 tab 12/01/21 10-325] Allergies Allergy/AdvReac Type Severity Reaction Status Date / Time sulfamethoxazole Allergy Severe Anaphylaxis Verified 12/01/21 15:54 [From Bactrim] trimethoprim [From Bactrim] Allergy Severe Anaphylaxis Verified 12/01/21 15:54 venom-honey bee Allergy Severe Anaphylaxis Verified 12/01/21 15:54 [bee venom (honey bee)] Review of Systems ROS Statement: Those systems with pertinent positive or pertinent negative responses have been documented in the HPI. ROS Other: All systems not noted in ROS Statement are negative. Past Medical History Past Medical History: Asthma, GERD/Reflux, Musculoskeletal Disorder Additional Past Medical History / Comment(s): Irritable Bowel Syndrome. Varicose vein. Scoliosis. Hx broken tail bone. History of Any Multi-Drug Resistant Organisms: MRSA Date of last positivie culture/infection: 2009 MDRO Source:: under left arm Past Surgical History: Adenoidectomy, Tonsillectomy Additional Past Surgical History / Comment(s): Cysts removed from ovary, 3 teeth removed surgically, sinus surgery X2, laproscopic surgery. Past Anesthesia/Blood Transfusion Reactions: No Reported Reaction Past Psychological History: Anxiety Smoking Status: Current every day smoker Past Alcohol Use History: None Reported Past Drug Use History: None Reported - Past Family History Mother Family Medical History: Thyroid Disorder General Exam Limitations: no limitations General appearance: alert, in no apparent distress Head exam: Present: atraumatic, normocephalic, normal inspection Eye exam: Present: normal appearance, PERRL, EOMI. Absent: scleral icterus, conjunctival injection, periorbital swelling Respiratory exam: Present: normal lung sounds bilaterally. Absent: respiratory distress, wheezes, rales, rhonchi, stridor Cardiovascular Exam: Present: regular rate, normal rhythm, normal heart sounds. Absent: systolic murmur, diastolic murmur, rubs, gallop, clicks Extremities exam: Present: other (moderate swelling over 4th and 5th right metacarpals with 1 cm abrasion overlying ) Neurological exam: Present: alert, oriented X3, CN II-XII intact Psychiatric exam: Present: normal affect, normal mood Skin exam: Present: warm, dry, intact, normal color. Absent: rash Course Vital Signs 12/01/21 12/01/21 15:50 20:20 Temperature 98.3 F Pulse Rate 65 57 L Respiratory 18 16 Rate Blood Pressure 110/77 98/61 O2 Sat by Pulse 98 98 Oximetry Procedures - Orthopedic Fracture Reduction Fracture #1 Consent Obtained: verbal consent Side: right Fracture Reduction Location: metacarpal (fifth ) Analgesia: hematoma block Technique: direct manipulation Post Reduction X-rays Demonstrate: acceptable reduction Post-Reduction Neuro Exam: intact Post-Reduction Vascular Exam: intact Splint Applied: Yes Patient Tolerated Procedure: well Additional Comments: Reduction performed twice due to unsatisfactory alignment of first reduction - Orthopedic Splinting/Casting Injury #1 Upper Extremity Injury Location: hand (right ) Upper Extremity Immobilizer: ulnar gutter Medical Decision Making - Medical Decision Making This is a 36-year-old female who presents with right hand injury. Thorough history and examination were performed. There is moderate swelling over 4th and 5th right metacarpals with 1 a cm abrasion overlying. This region is very tender. No snuffbox tenderness. Neurovascularly intact. Right hand x-ray shows an acute boxer's fracture of the distal fifth metacarpal with displacement. Dr. Gregg performed a hematoma block with reduction. Patient tolerated the procedure well with no complications. Postreduction hand x-ray showed some improved alignment of the fragments. A second reduction was performed. Post reduction x-ray was obtained again which showed satisfactory alignment alignment. The right hand was placed in an ulnar gutter splint. Prophylactic kefzol was given and tetanus updated. Neurovascularly intact on reassessment. Patient will be discharged with a short course of [place] as well as keflex and instructed to follow-up with presidential support specialist in 1-2 days. She will return if she experiences any new, concerning, or worsening symptoms. She verbalizes understanding and is agreeable to this plan. Dr. Marte is my attending. Disposition Clinical Impression: Boxer's fracture Disposition: HOME SELF-CARE Condition: Good Instructions (If sedation given, give patient instructions): Hand Fracture (ED) Additional Instructions: Take medication as directed. Keep splint clean and dry. Follow-up with presidential support specialist in 1-2 days. Return to the emergency department if you experience new, concerning, or worsening symptoms Prescriptions: Cephalexin [Keflex] 500 mg PO Q6HR #40 cap HYDROcodone/APAP 10-325MG [[place] 10-325] 1 tab PO Q4HR PRN 3 Days #18 tab PRN Reason: Pain Is patient prescribed a controlled substance at d/c from ED?: Yes If prescribed controlled substance>3 days was MAPS reviewed?: Yes Referrals: None,Stated [Primary Care Provider] - 1-2 days Abimael Crawford MD [STAFF PHYSICIAN] - 1-2 days Time of Disposition: 19:05
--- NOTE | 2021-12-01 19:44 | XR ---
EXAMINATION TYPE: XR hand complete RT DATE OF EXAM: 12/01/2021 COMPARISON: NONE HISTORY: Post reduction TECHNIQUE: 3 views FINDINGS: There is improved alignment of the fragments compared to initial exam. There is transverse fracture through the distal shaft of the fifth metacarpal. There is slight honing machine operator production ior angulation at the fracture site. There is fairly good apposition of the fragments IMPRESSION: No complicating process seen.
[2021-12-01] MEDS ORDERED: ceFAZolin 1,000 MG VIAL (IM USE) IM STA (19:51)
[2021-12-01] MEDS ORDERED: DIPH,PERTUS(ACELL)TETVAC-LF 0.5 ML VIAL IM ONE (19:56)
[2021-12-01 20:21] VITALS: BP 98/61; PULSE 57; RESP 16
--- NOTE | 2021-12-01 20:38 | XR ---
EXAMINATION TYPE: XR hand complete RT DATE OF EXAM: 12/01/2021 COMPARISON: NONE HISTORY: Post reduction TECHNIQUE: 3 views FINDINGS: There is transverse fracture of the distal fifth metacarpal. There is fairly good appositio n and alignment of the fragments. There is mild impaction. IMPRESSION: There is fairly satisfactory reduction of the distal fifth metacarpal fracture compared t o initial exam.
[2021-12-01] MEDS ORDERED: ACET/COD 300 MG/30 MG STARTER PACK 6 TAB BTL PO STA (20:57)
== END 2021-12-01 21:15 | disposition home or self-care (01) ==
LOC: EC 15:26
DX: S62.306A Unspecified fracture of fifth metacarpal bone, right hand, initial encounter for closed fracture (principal); J45.909 Unspecified asthma, uncomplicated; F17.200 Nicotine dependence, unspecified, uncomplicated; Z88.2 Allergy status to sulfonamides; Z91.030 Bee allergy status; W10.9XXA Fall (on) (from) unspecified stairs and steps, initial encounter; Y92.009 Unspecified place in unspecified non-institutional (private) residence as the place of occurrence of the external cause
CPT/HCPCS: 73130; 99283; 96372; 26742; J2270; J0690; J2001

== ENCOUNTER 2023-09-25 13:12 | Emergency (ER) | payer OTHER ==
--- NOTE | 2023-09-25 13:42 | ED ---
ENT HPI - General Chief complaint: Dental/Oral Stated complaint: Oral Pain Time Seen by Provider: 09/25/23 13:30 Source: patient, RN notes reviewed Mode of arrival: ambulatory Limitations: no limitations - History of Present Illness Initial comments: 38-year-old female presents to the emergency department chief complaint of dental pain. Patient states that she has poor dentition and has been having dental pain over the past few weeks. Patient states that she was on antibiotics about a month ago. Denies fevers, chills, nausea or vomiting. That she has follow-up appointment with a dentist scheduled this week, states that they would not have her in office if she has an active dental infection. - Related Data Previous Rx's Medication Instructions Recorded Ibuprofen [Motrin] 600 mg PO Q6HR PRN #30 tab 05/18/20 HYDROcodone/APAP 5-325MG [[place] 1 tab PO Q4HR PRN #30 tab 08/15/20 5-325] Ibuprofen [Motrin] 600 mg PO Q6HR PRN #30 tab 08/15/20 Cephalexin [Keflex] 500 mg PO Q6HR #40 cap 12/01/21 HYDROcodone/APAP 10-325MG [[place] 1 tab PO Q4HR PRN 3 Days #18 tab 12/01/21 10-325] Amoxicillin 875 mg PO Q12HR #20 tablet 09/25/23 Allergies Allergy/AdvReac Type Severity Reaction Status Date / Time sulfamethoxazole Allergy Severe Anaphylaxis Verified 09/25/23 13:36 [From Bactrim] trimethoprim [From Bactrim] Allergy Severe Anaphylaxis Verified 09/25/23 13:36 venom-honey bee Allergy Severe Anaphylaxis Verified 09/25/23 13:36 [bee venom (honey bee)] Review of Systems ROS Statement: Those systems with pertinent positive or pertinent negative responses have been documented in the HPI. ROS Other: All systems not noted in ROS Statement are negative. Past Medical History Past Medical History: Asthma, GERD/Reflux, Musculoskeletal Disorder Additional Past Medical History / Comment(s): Irritable Bowel Syndrome. Varicose vein. Scoliosis. Hx broken tail bone. History of Any Multi-Drug Resistant Organisms: MRSA Date of last positivie culture/infection: 2009 MDRO Source:: under left arm Past Surgical History: Adenoidectomy, Tonsillectomy Additional Past Surgical History / Comment(s): Cysts removed from ovary, 3 teeth removed surgically, sinus surgery X2, laproscopic surgery. Past Anesthesia/Blood Transfusion Reactions: No Reported Reaction Past Psychological History: Anxiety Smoking Status: Vaper Past Alcohol Use History: None Reported Past Drug Use History: None Reported - Past Family History Mother Family Medical History: Thyroid Disorder General Exam - General Exam Comments Initial Comments: Visual Physical Exam Vital signs reviewed General: Well-appearing, nontoxic, no acute distress. Head: Normocephalic, atraumatic Eyes: PERRLA, EOMI ENT: Airway patent Chest: Nonlabored breathing Skin: No visual rash, normal skin tone Neuro: Alert and oriented 3 Musculoskeletal: No gross abnormalities Limitations: no limitations General appearance: alert, in no apparent distress Head exam: Present: atraumatic, normocephalic, normal inspection Eye exam: Present: normal appearance, PERRL, EOMI. Absent: scleral icterus, conjunctival injection, periorbital swelling ENT exam: Present: normal exam, mucous membranes moist Expanded Mouth exam: Absent: normal external inspection Teeth exam: Present: dental caries, fractured tooth #, dental tenderness # Neck exam: Present: normal inspection. Absent: tenderness, meningismus, lymphadenopathy Respiratory exam: Present: normal lung sounds bilaterally. Absent: respiratory distress, wheezes, rales, rhonchi, stridor Cardiovascular Exam: Present: regular rate, normal rhythm, normal heart sounds. Absent: systolic murmur, diastolic murmur, rubs, gallop, clicks GI/Abdominal exam: Present: soft, normal bowel sounds. Absent: distended, tenderness, guarding, rebound, rigid Extremities exam: Present: normal inspection, full ROM, normal capillary refill. Absent: tenderness, pedal edema, joint swelling, calf tenderness Back exam: Present: normal inspection Neurological exam: Present: alert, oriented X3, CN II-XII intact Psychiatric exam: Present: normal affect, normal mood Skin exam: Present: warm, dry, intact, normal color. Absent: rash Course Vital Signs 09/25/23 13:31 Temperature 97.3 F L Pulse Rate 72 Respiratory 18 Rate Blood Pressure 136/82 O2 Sat by Pulse 95 Oximetry Medical Decision Making - Medical Decision Making Was pt. sent in by a medical professional or institution (, PA, NEWS REPORTER, urgent care, hospital, or group home...) When possible be specific @ -No Did you speak to anyone other than the patient for history (EMS, parent, family, police, friend...)? What history was obtained from this source @ -No Did you review nursing and triage notes (agree or disagree)? Why? @ -I reviewed and agree with nursing and triage notes Were old charts reviewed (outside hosp., previous admission, EMS record, old EKG, old radiological studies, urgent care reports/EKG's, group home records)? Report findings @ -No old charts were reviewed Differential Diagnosis (chest pain, altered mental status, abdominal pain women, abdominal pain men, vaginal bleeding, weakness, fever, dyspnea, syncope, headache, dizziness, GI bleed, back pain, seizure, CVA, palpatations, mental health, musculoskeletal)? @ -Dental pain, dental caries, dental abscess, dental fracture EKG interpreted by me (3pts min.). @ -none X-rays interpreted by me (1pt min.). @ -None done CT interpreted by me (1pt min.). @ -None done U/S interpreted by me (1pt. min.). @ -None done What testing was considered but not performed or refused? (CT, X-rays, U/S, labs)? Why? @ -None What meds were considered but not given or refused? Why? @ -None Did you discuss the management of the patient with other professionals (professionals i.e. , PA, NEWS REPORTER, lab, RT, psych nurse, manager social services, ballistic technician, teacher, financial aids officer, rn case mgr)? Give summary @ -No Was smoking cessation discussed for >3mins.? @ -No Was critical care preformed (if so, how long)? @ -No Were there social determinants of health that impacted care today? How? (Homelessness, low income, unemployed, alcoholism, drug addiction, transportation, low edu. Level, literacy, decrease access to med. care, shelter, rehab)? @ -No Was there de-escalation of care discussed even if they declined (Discuss DNR or withdrawal of care, Hospice)? DNR status @ -No What co-morbidities impacted this encounter? (DM, HTN, Smoking, COPD, CAD, Cancer, CVA, ARF, Chemo, Hep., AIDS, mental health diagnosis, sleep apnea, morbid obesity)? @ -None Was patient admitted / discharged? Hospital course, mention meds given and route, prescriptions, significant lab abnormalities, going to OR and other pertinent info. @ -Discharged. 38-year-old female with complaint of left-sided dental pain. On examination patient was noted to have poor dentition with multiple dental fractures and dental caries noted. Patient has point tenderness over the maxillary tooth which is fractured. There are no overt signs of abscess. Patient will be discharged home on amoxicillin and instructed to follow-up outpatient with dentist. She is in agreement with this. Discussed with Dr. june Undiagnosed new problem with uncertain prognosis? @ -No Drug Therapy requiring intensive monitoring for toxicity (Heparin, Nitro, Insulin, Cardizem)? @ -No Were any procedures done? @ -No Diagnosis/symptom? @ -[dental pain, dental infection Acute, or Chronic, or Acute on Chronic? @ -acute Uncomplicated (without systemic symptoms) or Complicated (systemic symptoms)? @ -uncomplicated Side effects of treatment? @ -No Exacerbation, Progression, or Severe Exacerbation? @ -No Poses a threat to life or bodily function? How? (Chest pain, [place], [place], pneumonia, PE, COPD, DKA, ARF, appy, cholecystitis, CVA, Diverticulitis, Homicidal, Suicidal, threat to staff... and all critical care pts) @ -No Disposition Clinical Impression: Pain due to dental caries Narrative: Please return to the Emergency Department if symptoms worsen or any other concerns. Follow-up with your primary care provider and dentist within the next week for further evaluation. Disposition: HOME SELF-CARE Condition: Good Instructions (If sedation given, give patient instructions): Toothache (ED) Prescriptions: Amoxicillin 875 mg PO Q12HR #20 tablet Is patient prescribed a controlled substance at d/c from ED?: No Referrals: Pradeep Tejada MD [Primary Care Provider] - 1-2 days Time of Disposition: 13:55
[2023-09-25 14:03] VITALS: BP 136/82; PULSE 72; RESP 18; TEMP 97.3
== END 2023-09-25 14:15 | disposition home or self-care (01) ==
LOC: EC 13:12
DX: K03.81 Cracked tooth (principal); K02.9 Dental caries, unspecified; F17.290 Nicotine dependence, other tobacco product, uncomplicated; Z88.2 Allergy status to sulfonamides; Z88.1 Allergy status to other antibiotic agents; Z91.030 Bee allergy status
CPT/HCPCS: 99282

== ENCOUNTER 2024-01-30 11:02 | Emergency (ER) | payer OTHER ==
[2024-01-30] MEDS ORDERED: MORPHINE SULFATE 2 MG/ML SYRINGE ONE (14:53)
[2024-01-30] MEDS ORDERED: SODIUM CHLORIDE 0.9% 1,000 ML BAG ONE (15:00)
--- NOTE | 2024-02-21 12:35 | CT ---
Patient: Constanza Box Ordering Physician: Unknown, Unknown ID: [id number] Phone, Pager: Phone: N/A Pager: N/A : 1985 Age/Gender: 38Y, F Primary Location: N/A Procedure: CT abdomen pelvis w o con Study Date: 01/30/2024 3:18:10 PM EXAMINATION TYPE: CT abdomen pelvis wo con CT DLP: 926.9 mGycm, Automated exposure control for dose reduction was used. DATE OF EXAM: 01/30/2024 3:51 PM COMPARISON: 01/23/2016 CLINICAL INDICATION: Hematuria TECHNIQUE: Axial CT abdomen pelvis wo con;Sagittal and coronal reformats were created on a separate workstation. Contrast used: mL of , (none if empty) Oral contrast used: (none if empty) FINDINGS: LOWER CHEST: Unremarkable ABDOMEN LIVER: Unremarkable GALLBLADDER AND BILE DUCTS: Unremarkable. PANCREAS: Unremarkable. SPLEEN: Unremarkable. ADRENAL GLANDS: Unremarkable. KIDNEYS AND URETERS: Nonobstructing left 3 mm conscious. No right renal calculi. No obstructive uropa thy. PELVIS BLADDER: Unremarkable REPRODUCTIVE: Bilateral tubal ligation clips. ABDOMEN & PELVIS STOMACH AND BOWEL: No evidence of bowel obstruction. Appendix is normal.r PERITONEUM/RETROPERITONEUM: No evidence of pneumoperitoneum or free fluid. VASCULATURE: No evidence of aortic aneurysm. MUSCULOSKELETAL: No acute osseous abnormalities LYMPH NODES: No gross evidence for lymphadenopathy. SOFT TISSUE/ABDOMINAL WALL: Unremarkable IMPRESSION: Nonobstructing left renal calculus measuring 3 mm. No hydronephrosis or obstructive uropathy.
== END 2024-01-30 17:49 | disposition home or self-care (01) ==
LOC: EC 11:02
DX: N20.0 Calculus of kidney (principal)
CPT/HCPCS: 74176; 87077; 87086; 87186; 96361; 96374; 99284

== ENCOUNTER → 2024-06-19 | Outpatient (CLI) | payer OTHER ==
--- NOTE | 2024-06-19 11:54 | US ---
EXAMINATION TYPE: US transvaginal DATE OF EXAM: 06/19/2024 COMPARISON: CT January 30, 2024 CLINICAL INDICATION: Female, 39 years old with history of N92.0 Menorrhagia; Heavy painful periods ev er since having her tubes tied TECHNIQUE: Transvaginal (TV). FINDINGS: Date of LMP: 1-2 weeks ago EXAM MEASUREMENTS: Uterus: 9.6 x 5.2 x 6.1 cm Endometrial Stripe: 0.6 cm Right Ovary: 3.2 x 1.9 x 3.1 cm Left Ovary: not seen 1. Uterus: anteverted, mildly heterogeneous 2. Endometrium: appears wnl 3. Right Ovary: multiple follicles measuring up to 1.5 cm 4. Left Ovary: not seen due to overlying bowel gas 5. Bilateral Adnexa: wnl 6. Posterior cul-de-sac: wnl IMPRESSION: Suboptimal study without suspicious finding seen to account for patient's clinical sympto ms [facility], Workstation: [id number], 06/19/2024 11:52 AM
== END | disposition home or self-care (01) ==
LOC: RADUSWWP 09:35
PROVIDERS: ATTEND Family Medicine
DX: N92.0 Excessive and frequent menstruation with regular cycle (principal); N94.6 Dysmenorrhea, unspecified
CPT/HCPCS: 76830